=== PATIENT | female | born 2005 | race Caucasian/White ===

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

== ENCOUNTER 2023-09-28 16:02 | Emergency (ER) | payer OTHER ==
[2023-09-28 16:26] VITALS: BP 120/70; PULSE 81; RESP 18; TEMP 98; BMI 65.2
[2023-09-28] MEDS ORDERED: IBUPROFEN 600 MG TABLET (FP) PO ONE (17:18)
[2023-09-28] MEDS: IBUPROFEN 600 MG TABLET (FP) PO ONE (17:19)
== END 2023-09-28 18:03 | disposition home or self-care (01) ==
LOC: JERFT 16:02
DX: M25.571 Pain in right ankle and joints of right foot (principal); X50.1XXA Overexertion from prolonged static or awkward postures, initial encounter
CPT/HCPCS: 73610-TC-RT-FY; 73630-TC-RT-FY; 99283-25

== ENCOUNTER 2024-02-20 17:19 | Emergency (ER) | payer OTHER ==
[2024-02-20 17:29] VITALS: RESP 18; BMI 31.8
[2024-02-20 18:31] LABS: BASO % 0.5 % (0-2.0); EOS % 0.5 % (0-4.5); HEMATOCRIT 35.5 % (32.4-45.2); HEMOGLOBIN 11.6 GM/dL (10.7-15.3); LYMPH % 17.3 % (8-40); MCH 27.2 pg (25.7-33.7); MCHC 32.5 g/dl (32.0-36.0); MEAN CELL VOLUME 83.7 fl (80-96); MEAN PLT VOLUME 8.7 fl (7.5-11.1); MONO % 8.1 % (3.8-10.2); NEUT % 73.6 % (42.8-82.8); PLATELET COUNT 209 10^3/uL (134-434); RBC 4.25 M/mm3 (3.60-5.2); RDW 16.2 % (11.6-15.6); WHITE BLOOD COUNT 8.4 K/mm3 (4.0-10.0)
[2024-02-20] MEDS ORDERED: ACETAMINOPHEN INJECTION 100 ML ONE (18:33)
[2024-02-20] MEDS: SODIUM CHLORIDE 0.9% 500 ML INFUS.BAG IV ONE (18:41)
[2024-02-20] MEDS: ACETAMINOPHEN 1000 MG/100 ML BAG IVPB ONE (18:42)
[2024-02-20 18:53] LABS: CALCIUM 8.4 mg/dL (8.5-10.1)
[2024-02-20 18:54] LABS: ALBUMIN 3.6 g/dl (3.4-5.0); BLOOD UREA NITROGEN 8.6 mg/dL (7-18); MAGNESIUM 2.1 mg/dL (1.8-2.4)
[2024-02-20 18:57] LABS: CREATININE 0.8 mg/dL (0.55-1.3)
[2024-02-20 18:58] LABS: BILIRUBIN,TOTAL 1.2 mg/dL (0.2-1); TOT PROT 6.9 g/dl (6.4-8.2)
[2024-02-20 20:42] LABS: URINE APPEARANCE CLEAR; URINE BILIRUBIN NEGATIVE (NEGATIVE); URINE COLOR YELLOW; URINE GLUCOSE (UA) NEGATIVE (NEGATIVE); URINE KETONE TRACE (NEGATIVE); URINE LEUK ESTERASE NEGATIVE (NEGATIVE); URINE NITRITE NEGATIVE (NEGATIVE); URINE PROTEIN TRACE (NEGATIVE); URINE UROBILINOGEN 0.2 mg/dL (0.2-1.0)
[2024-02-20 20:43] LABS: HCG,QUALITATIVE URINE Positive
[2024-02-20 20:44] VITALS: BP 98/56; PULSE 60; TEMP 98.1
== END 2024-02-20 20:45 | disposition home or self-care (01) ==
LOC: JER 17:19
DX: O99.891 Other specified diseases and conditions complicating pregnancy (principal); R55 Syncope and collapse; Z3A.00 Weeks of gestation of pregnancy not specified
CPT/HCPCS: 36415; 71045-TC-FY; 80053; 81003; 82962; 83735; 84484; 84702; 84703; 85025; 87086; 93005; 93010; 99285-25; J0131